=== PATIENT | male | born 1960 | race Hispanic/Latino ===

== ENCOUNTER 2018-02-15 14:25 | Emergency (ER) | payer MEDICARE ==
[~2018-02-15] VITALS: Ht 165.1 cm; Wt 86.2 kg
[~2018-02-15 14:25] MED LIST: ASPIRIN81 MG; BABY ASPIRIN81 MG PO; CLOPIDOGREL75 MG PO; DIOVAN80 MG PO; ISOSORBIDE DINI30 MG PO; KLOR-CON 1010 MEQ PO; LASIX40 MG PO; METOPROLOL SUCC25 MG PO; NEURONTIN300 MG PO; OMEPRAZOLE40 MG PO; RANEXA500 MG PO; SIMVASTATIN80 MG PO
--- OUTSIDE RECORDS SUMMARY | 2018-02-15 14:29 | XMS REPORT ---
Author Author [facility] Address Unknown Phone Unavailable Care Team Providers Care [employer] Service Technician Name Role Phone Unavailable Unavailable Payers Payer Name Policy Type Policy Number Effective Date Expiration Date Problems This patient has no known problems. Allergies, Adverse Reactions, Alerts Allergy Name Allergy Type Status Severity Reaction(s) Onset Date Inactive Date Treating Clinician Comments No Known Allergies DA Active U 2017-08-04 00:00:00 Medications This patient has no known medications.
[2018-02-15] MEDS ORDERED: HYDROCODONE/APAP 10MG-325MG TAB PO ONE (16:30)
[2018-02-15] MEDS ORDERED: KETOROLAC TROMETHAMINE 60 MG/2 ML VIAL IM ONE (16:30)
[2018-02-15] MEDS ORDERED: DEXAMETHASONE SOD PHOS 10 MG/1 ML VIAL IM ONE (17:15)
== END 2018-02-15 19:14 | disposition home or self-care (01) ==
LOC: ER 14:25
DX: M79.642 Pain in left hand (principal); M19.042 Primary osteoarthritis, left hand; I10 Essential (primary) hypertension; E11.9 Type 2 diabetes mellitus without complications; I25.10 Atherosclerotic heart disease of native coronary artery without angina pectoris; Z86.73 Personal history of transient ischemic attack (TIA), and cerebral infarction without residual deficits
CPT/HCPCS: 99282; J1100; J1885

== ENCOUNTER 2018-04-23 20:20 | Inpatient (IN) | payer MEDICARE ==
[~2018-04-23] VITALS: Ht 165.1 cm; Wt 87.5 kg
[2018-04-23] MEDS ORDERED: SODIUM CHLORIDE 0.9% 500ML 500 ML IV STA (20:27)
[2018-04-23] MEDS ORDERED: FAMOTIDINE 20 MG/2 ML VIAL IV ONE (20:30)
[2018-04-23] MEDS ORDERED: LEVETIRACETAM 500MG/5ML VIAL 500 MG in SODIUM CHLORIDE 0.9% 100 ML 100 ML IV SCH ×2 (20:30→21:00)
[2018-04-23] MEDS ORDERED: LORAZEPAM INJ 2 MG/ML VIAL ONE (20:35)
[2018-04-23] MEDS ORDERED: LORAZEPAM INJ 2 MG/ML VIAL IV ONE (20:45)
[2018-04-23 20:46] LABS: BASOPHILS % 0.4 % (0.0-1.0); EOSINOPHILS # (AUTO) 0.4 (0.0-0.4); EOSINOPHILS % 3.8 % (0.0-6.0); HEMATOCRIT 54.5 % (38.2-49.6); HEMOGLOBIN 18.1 g/dL (14.0-18.0); LYMPHOCYTES # (AUTO) 3.3 (1.0-3.2); LYMPHOCYTES % 34.8 % (18.0-39.1); MEAN CORPUSCULAR HEMOGLOBIN 29.1 pg (28-32); MEAN CORPUSCULAR HGB CONC 33.2 g/dL (31-35); MEAN CORPUSCULAR VOLUME 87.6 fL (81-99); MONOCYTES # (AUTO) 0.6 (0.2-0.8); MONOCYTES % 6.2 % (4.4-11.3); NEUTROPHILS # (AUTO) 5.2 (2.1-6.9); NEUTROPHILS % 54.6 % (38.7-80.0); PLATELET COUNT 182 x10e3/uL (140-360); RED BLOOD COUNT 6.22 x10e6/uL (4.3-5.7); RED CELL DISTRIBUTION WIDTH 13.2 % (11.7-14.4)
[2018-04-23 21:02] LABS: ALANINE AMINOTRANSFERASE 18 IU/L (0-55); ALBUMIN 3.6 g/dL (3.5-5.0); ALBUMIN/GLOBULIN RATIO 0.9 (0.8-2.0); ALKALINE PHOSPHATASE 60 IU/L (40-150); ANION GAP 18.1 mmol/L (8-16); BLOOD UREA NITROGEN 14 mg/dL (7-26); BUN/CREATININE RATIO 12 (6-25); CALCIUM 9.3 mg/dL (8.4-10.2); CARBON DIOXIDE 17 mmol/L (22-29); CHLORIDE 104 mmol/L (98-107); CREATINE KINASE 123 IU/L (30-200); CREATININE, SERUM 1.19 mg/dL (0.72-1.25); EST GLOMERULAR FILTRATION RATE > 60 ML/MIN (60-); GLUCOSE 244 mg/dL (74-118); MAGNESIUM 2.5 MG/DL (1.3-2.1); POTASSIUM 4.1 mmol/L (3.5-5.1); SODIUM 135 mmol/L (136-145)
--- NOTE | 2018-04-23 21:06 | Diagnostic Imaging Report ---
Examination: CT head without contrast Clinical Indication: Seizures. Technique: Transaxial noncontrast images from the skull base through the vertex were obtained. Sagittal and coronal reformatted images were done. Dose modulation, iterative reconstruction, and/or weight based adjustment of the mA/kV was utilized to reduce the radiation dose to as low as reasonably achievable. Comparison: None. Findings: Scalp: No abnormalities. Bones: Intact. No fractures. No blastic or lytic lesions. Brain sulci: Appropriate for patient's age. Ventricles: Normal in size and configuration. No hydrocephalus. . Extra-axial space: No abnormalities. Parenchyma: There are subtle patchy areas of low-attenuation within subcortical and periventricular white matter, nonspecific, but could represent microvascular ischemic disease. No masses, hemorrhage, or acute or chronic cortical based vascular insults. Suprasellar region: No abnormalities. Craniocervical junction: The foramen magnum is patent. No Chiari one malformation. Incidental findings: Atherosclerotic calcification of the cavernous and supraclinoid internal carotid arteries. Impression: 1. No acute intracranial finding. 2. Mild chronic microvascular ischemic change. Signed by: Dr. Edna Spence M.D. on 04/23/2018 9:02 PM
[2018-04-23] MEDS ORDERED: LEVETIRACETAM 500 MG/5 ML VIAL IV ONE ×3 (21:25→23:51)
[2018-04-23] MEDS ORDERED: SODIUM CHLORIDE 0.9% 500ML 500 ML ONE (21:26)
[2018-04-23] MEDS ORDERED: SODIUM CHLORIDE 0.9% 100 ML ONE ×3 (21:27→23:52)
[2018-04-23] MEDS: ONDANSETRON HCL INJ 2MG/ML 2ML 2 MG/ML VIAL IV STA ×2 (21:35→21:41)
[2018-04-23] MEDS ORDERED: LEVETIRACETAM500 MG (21:40)
--- NOTE | 2018-04-23 21:40 | NUR ---
home meds reviewed with billy
[2018-04-23] MEDS ORDERED: LORAZEPAM INJ 2 MG/ML VIAL IV PRN (21:45)
[2018-04-23] MEDS ORDERED: ENALAPRILAT IV INJ 1.25 MG/ML VIAL IV PRN (21:45)
[2018-04-23] MEDS ORDERED: ENOXAPARIN SODIUM INJ 100 MG/ML SYR SC ONE (21:45)
[2018-04-23] MEDS ORDERED: ASPIRIN 81 MG CHEW TAB PO ONE (21:45)
--- NOTE | 2018-04-23 21:46 | Diagnostic Imaging Report ---
EXAMINATION: CHEST SINGLE (PORTABLE) INDICATION: ^Chest pain, look for CHF, enlarge Mediastinum ^[id number] ^[id number] COMPARISON: 01/04/2013 FINDINGS: AP view TUBES and LINES: None. LUNGS: Limited by body habitus and low lung volumes. Mild central vascular congestion. PLEURA: No pleural effusion or pneumothorax. HEART AND MEDIASTINUM: The cardiomediastinal silhouette is enlarged. Median sternotomy wires. BONES AND SOFT TISSUES: No acute osseous lesion. Soft tissues are unremarkable. UPPER ABDOMEN: No free air under the diaphragm. IMPRESSION: Limited as above. Enlarged cardiomediastinal silhouette and central vascular congestion, accentuated by low lung volumes. Signed by: Dr. Dawood Camp MD on 04/23/2018 9:42 PM
[2018-04-23] MEDS ORDERED: LEVETIRACETAM 500MG/5ML VIAL 500 MG in SODIUM CHLORIDE 0.9% 100 ML 100 ML IV ONE (22:15)
[2018-04-23] MEDS ORDERED: DEXTROSE 50% SYRINGE 50 ML IV PRN (22:15)
[2018-04-23] MEDS: FAMOTIDINE 20 MG/2 ML VIAL IV SCH ×2 (22:19→22:27)
[2018-04-23 23:49] LABS: BILIRUBIN,URINE NEGATIVE (NEGATIVE); CLARITY,URINE CLEAR (CLEAR); COLOR,URINE YELLOW (YELLOW); KETONES,URINE NEGATIVE (NEGATIVE); LEUKOCYTE ESTERASE ,URINE NEGATIVE (NEGATIVE); NITRITE,URINE NEGATIVE (NEGATIVE); PROTEIN,URINE DIPSTICK 1+ (NEGATIVE); RBC,URINE 0-5 /HPF (0-5); URINE UROBILINOGEN 0.2 mg/dL (0.2 - 1)
[2018-04-24] VITALS (9 sets, daily range): BP systolic 125–155; BP diastolic 72–88
[2018-04-24 06:36] LABS: CREATINE KINASE MB 0.6 ng/mL (0-5.0)
[2018-04-24 07:00] LABS: CHOL/HDL RATIO 6.5 (3.9-4.7); CHOLESTEROL 157 MD/DL (0-199); HDL CHOLESTEROL 24 MG/DL (40-60); TRIGLYCERIDES 1064 MG/DL (0-149)
[2018-04-24] MEDS: INSULIN REGULAR, HUMAN 100 UNIT/1 ML 3ML VIAL SQ SCH ×4 (08:40→20:24)
[2018-04-24] MEDS: FAMOTIDINE 20 MG/2 ML VIAL IV SCH ×2 (08:46→20:23)
[2018-04-24] MEDS: ACETAMINOPHEN 325 MG TAB PO PRN ×2 (08:56→17:40)
[2018-04-24] MEDS ORDERED: LEVETIRACETAM 500MG/5ML VIAL 1,000 MG in SODIUM CHLORIDE 0.9% 100 ML 100 ML IV SCH (09:00)
[2018-04-24] MEDS ORDERED: FAMOTIDINE 20 MG/2 ML VIAL IV SCH (09:00)
[2018-04-24] MEDS ORDERED: LEVETIRACETAM 500MG/5ML VIAL 500 MG in SODIUM CHLORIDE 0.9% 100 ML 100 ML IV SCH (09:45)
[2018-04-24 14:10] LABS: CREATINE KINASE MB 0.5 ng/mL (0-5.0)
[2018-04-24] MEDS: GABAPENTIN 300 MG CAP PO SCH ×2 (14:13→20:23)
[2018-04-24] MEDS ORDERED: RANOLAZINE 500 MG TABSR PO SCH (17:00)
[2018-04-24] MEDS ORDERED: LEVETIRACETAM 500 MG TAB PO SCH (17:00)
--- NOTE | 2018-04-24 17:25 | NUR ---
pt called light , entered room pt appeared to be having a seizure. rapid called and cancelled after 10 sec. pt gained conscience and was able to state his name, , and location. v/s taken, 02 w/in normal level at 97%, pt reports a h/a contacted md willingham. states plan of care remains unchanged , upon her stand point pt is ok to go home, states it will take a while for body to adjust to new keprra dose. no orders received, will monitor pt closely
[2018-04-24] MEDS ORDERED: ISOSORBIDE MONONITRATE 30 MG TAB CR PO SCH (17:30)
[2018-04-24] MEDS ORDERED: VALSARTAN 80 MG TAB PO SCH (17:30)
--- NOTE | 2018-04-24 17:43 | NUR ---
given tylenol and home bp medication at this time
--- NOTE | 2018-04-24 18:24 | NUR ---
spoke with md david has cleared upon cardiac standpoint .
--- NOTE | 2018-04-24 18:59 | Consultation ---
DATE OF CONSULTATION: 04/24/2018 Neurology Consult Note HISTORY OF PRESENT ILLNESS: Mr. Eng is a 57-year-old aifno-uklb-fztgqaec man with past medical history significant for hypertension, hyperlipidemia, diabetes mellitus, coronary artery disease with prior myocardial infarction, prior stroke without residual deficits and seizure disorder admitted to [facility] on April 23, 2018, with multiple seizures and chest pain. According to the patient, he experienced a stroke approximately 1 year ago. Sometime after the stroke (the patient guesses approximately 2 months), he presented to [facility] concerned he was having another stroke. The patient was admitted for further testing. This testing determined that the patient had not had a stroke, but had experienced seizure resulting in recrudescence of prior deficits. Mr. Eng was prescribed Keppra 500 mg by mouth twice daily for seizure prophylaxis. Sometime within the past year, the patient presented once again with seizures to [facility]. At that time, the dose of Keppra was increased to 1000 mg by mouth twice daily for seizure prophylaxis. Mr. Eng describes his seizures as follows. He reports aura, but cannot describe it. Within a few seconds of experiencing this aura, the patient becomes unresponsive and has "bobbling of the head and moving of the arms." There is no tongue biting or bladder or bowel incontinence associated with this activity. The duration of this activity is unknown. Afterwards, Mr. Eng experiences postictal state characterized by lack of memory for the event, fatigue/tiredness, and headache. Mr. Eng estimates returning to his neurological baseline within one to two hours. On the day of admission, Mr. Eng reportedly experienced "lckb-bf-sgsk seizures" while at home. This prompted the patient's presentation to the emergency center at [facility] for further evaluation. Upon arrival in the Emergency Center, the patient was afebrile with a blood pressure of 148/99 mmHg and a pulse of 83 beats per minute. His neurological examination was documented as follows: Altered mental status. Alertness is decreased. While in the Emergency Center, the patient underwent multiple diagnostic studies, including a CT of the brain without contrast, which did not reveal evidence of recent large territorial ischemia or hemorrhage. Mr. Eng was admitted to [facility] as an inpatient for further evaluation and treatment of his symptoms. Mr. Eng describes the control of his seizures as "okay." Specifically, he reports possibly going a few weeks between seizures. However, recently his seizure activity has been increased. The patient does not report sleep deprivation, new medications, missed doses of medications (neither Keppra nor lorazepam), or use of stimulants. The patient reports only occasional alcohol use. He did have one glass of wine last night. Last week, Mr. Eng had the flu. REVIEW OF SYSTEMS: Chest pain/tightness, flu like symptoms for the past 1 to 2 weeks, seizures, headache. Otherwise, the 12-point review of systems is negative. PAST MEDICAL HISTORY: Hypertension, hyperlipidemia, diabetes mellitus, coronary artery disease with prior myocardial infarction, seizure disorder, stroke without residual deficits, and bilateral carotid artery stenosis. PAST SURGICAL HISTORY: Coronary artery bypass graft (7 vessels ?), appendectomy, umbilical hernia repair, left middle finger amputation, left ulnar nerve transposition, right cataract removal. PAST HOSPITALIZATIONS: Surgeries/procedures as listed, myocardial infarction, stroke, multiple hospitalizations and procedures. FAMILY MEDICAL HISTORY: The patient's paternal and maternal grandparents are . Their medical histories are unknown. The patient's father from coronary artery disease with myocardial infarction. Mr. Eng's mother . She had coronary artery disease with myocardial infarction and stroke. The patient had two siblings, one sister and brother. Brother is from coronary artery disease and myocardial infarction. The patient's sister is alive and has diabetes mellitus. Mr. Eng has 4 children, 3 boys and 1 girl, all of whom are alive. The youngest son had breast cancer, but is currently in remission. The remaining three children are healthy. SOCIAL HISTORY: Mr. Eng is . He is on disability. The patient quit smoking cigarettes in 2005. Mr. Eng reports occasional alcohol use. He does not report current or prior recreational drug use. HOME MEDICATIONS: Plavix 75 mg by mouth daily, Lasix 40 mg by mouth daily, isosorbide dinitrate 30 mg by mouth daily, metoprolol succinate 25 mg by mouth daily, losartan 80 mg by mouth daily, simvastatin 80 mg by mouth daily, Ranexa 500 mg by mouth twice daily, gabapentin 600 mg by mouth three times daily. ALLERGIES: NO KNOWN DRUG ALLERGIES. NO KNOWN FOOD ALLERGIES. NO KNOWN ALLERGIES TO LATEX. NO KNOWN ALLERGIES TO IODINE OR OTHER CONTRAST MATERIALS. PHYSICAL EXAMINATION: VITAL SIGNS: Height 65 inches, weight 193 pounds, BMI 32.1 kg/m2, blood pressure 145/81 mmHg, pulse 75 beats per minute, respiratory rate 20 breaths per minute. Oxygen saturation 95% on room air. GENERAL: The patient is awake and alert, does not appear distressed. Obese. HEENT: Normocephalic, atraumatic. Pupils are pinpoint. Moist mucous membranes. NECK: Supple. No appreciable thyromegaly. No appreciable carotid bruits. CARDIOVASCULAR: S1 and S2, regular rate and rhythm. No murmurs, rubs, or gallops. RESPIRATORY: Clear to auscultation bilaterally. No wheezes, rhonchi, or rales. EXTREMITIES: The skin is warm and dry. No clubbing, cyanosis, or edema. The posterior tibial and dorsalis pedis pulses are 1+ and symmetric. SKIN: No rashes or lesions. NEUROLOGIC: Memory/Attention: The patient is awake and alert, oriented to person, place, time, and situation. Cranial Nerves: Cranial nerve 1, not tested. Cranial nerve 2, 3, 4, and 6, the pupils are pinpoint. Extraocular movements intact. No nystagmus. Cranial nerve 5, sensation to light touch and pinprick is intact in the bilateral V1 through V3 distributions. Strength in the temporalis and masseter muscles is within normal limits. Cranial nerve 7, the face is symmetric as are all facial movements. Strength is within normal limits. Cranial nerve 8, hearing is intact to finger rub bilaterally. Cranial nerve 9 and 10, the soft palate elevates equally and symmetrically. Cranial nerve 11, normal strength to the bilateral sternocleidomastoid and trapezius muscles. Cranial nerve 12, the tongue protrudes in the midline and moves symmetrically from rvsc-nd-bxam. Strength: Bulk is normal. Strength is 5/5 in the bilateral deltoids, biceps, triceps, wrist flexors and extensors, finger flexors and extensors, intrinsic hand muscles, hip flexors, knee flexors and extensors, ankle dorsiflexor and plantar flexion, and intrinsic foot muscles. Tone is normal. DTRs: Deep tendon reflexes are 1+ and symmetric at the triceps, biceps, brachioradialis. Deep tendon reflexes are absent and symmetric at the Achilles. Plantar responses are flexor bilaterally. Sensation: Sensation is intact to light touch and pinprick in both arms and both legs except as follows: The patient reports tingling over the left leg to pinprick. Cerebellar: Yvedgp-pwqy-bstjeg and heel-baugh movements are intact without dysmetria or other impairment. Gait: Deferred. Speech: Spontaneous speech is normal without appreciable dysarthria or aphasia. Repetition is intact. Involuntary Movements: None. Pronator Drift: Subtle in the left arm. LABORATORY DATA: A comprehensive metabolic panel is significant for sodium of 135, carbon dioxide of 17, anion gap of 18.1, serum glucose of 244, magnesium of 2.5, and globulin of 4.0. B-natriuretic peptide is 73.5. Cardiac enzymes are negative x2. Total cholesterol is 157, triglycerides 1064, LDL cholesterol cannot be calculated, HDL cholesterol 24. A fingerstick serum glucose is 183. CBC with differential and platelets reveals white blood cell count of 9.47 with normal differential. The hemoglobin and hematocrit are 18.1 and 54.5 respectively. The platelet count is 182. Urinalysis was significant for 1+ protein, 2+ glucose, and trace blood. DIAGNOSTIC STUDIES: Electrocardiogram on 04/23/2018: Normal sinus rhythm at 86 beats per minute. Chest x-ray on 04/23/2018: Limited as above. Enlarged cardiomediastinal silhouette and central vascular congestion, accentuated by low lung volumes. CT of the brain without contrast on 04/23/2018: On my review, there is no evidence of recent large territorial ischemia, hemorrhage, mass, or mass effect. Cerebral volumes are appropriate for age. There are findings compatible with aruh-sf-eqszprns chronic small vessel ischemic disease. ASSESSMENT AND PLAN: Mr. Eng is a 57-year-old iqkum-cdpg-mzugggdg man with an extensive past medical history, including seizure disorder secondary to prior stroke. At present, the patient's neurological examination is nonfocal with the exception of tingling to pinprick over the left leg and a subtle pronator drift in the left arm. The patient's laboratory data and other diagnostic studies have been reviewed and are documented above. Based on the history provided by the patient, it appears Mr. Eng experienced a series of unprovoked seizures on April 23, 2018. Recommendations are as follows: 1. The dose of Keppra will be increased from 1000 mg to 1500 mg by mouth twice daily for seizure prophylaxis. Mr. Eng has an appointment scheduled with the neurologist on Thursday, April 26, 2018. The patient is strongly encouraged to keep this appointment, so he and the neurologist may discuss further evaluation and treatment. 2. For headaches, continue treatment with Tylenol 650 mg by mouth every 6 hours as needed. 3. For continued stroke prophylaxis, continue treatment with Plavix, antihypertensive medications, statin medication, and diabetes medications/treatments. Consider adding a medication for treatment of hypertriglyceridemia. 4. Defer treatment of the remaining medical comorbidities to the primary and other services following the patient. Thank you for this consultation. I will follow the patient while he remains in the hospital. Time spent: 50 minutes. Ese Jansen MD CP/KELLEN /[id number] MTDD
--- NOTE | 2018-04-24 19:14 | NUR ---
History and Physical cc: cp HPI: 57yoM, PCP Dr.J. Rivera, developed brief seizure while eating dinner, lasting about 3-5 seconds. Few minutes later, had another seizure; Pt does drink alcohol, but provides different stories about drinking beer, but not drinking for past 8 months; Pt admits that he has seizures about every week or other week. No real chest pain; no sob; Now patient feels fine, cleared by cardiology and neurology for discharge, after antiseizure medication increased; PMH: HTN, DM, DE in 2005 s/p 3 stents, s/p CABG, Former smoker PSHx: CABG, coronary stent, left middle finger amputation Allergies; see emr Fh/SH: ; quit cigs; etoh intermittent- amount unknown Meds; see MAR ROS; no f/c/s/N/V/D/MARQUEZ/vision changes/leg pain/back pain/skin rash v/s; rev'd PE: tired appearing anicteric ns1s2 mod bs soft nt nd no e/t skin dry flat affect a&ox; dennis; motor 5/5 all ext; no visual field deficits labs/meds; rev'd A/P: 57yoM Atypical cp HLD CAD GERD DM2 HTN Metabolic acidosis Obesity Seizure PLAN Keppra increased Continue home meds Counseled on etoh cessation Hba1c is 8.4, TG >1000 Change simvastatin to atorvastatin, add fibrate D/C home with new regimen; Poncho Villanueva MD, PhD.
[2018-04-24] MEDS ORDERED: FENOFIBRATE145 MG PO (19:16)
[2018-04-24] MEDS ORDERED: KEPPRA500 MG PO (19:16)
[2018-04-24] MEDS ORDERED: LIPITOR20 MG PO (19:16)
--- NOTE | 2018-04-24 20:42 | NUR ---
PT AAOX3. NO S/S OF DISTRESS NOTED. NO COMPLAINTS VOICED. CONDITION STABLE. DC'D TO HOME. PRESCRIPTIONS GIVEN. DISCHARGE INSTRUCTIONS PROVIDED, PT VERBALIZED UNDERSTANDING. BELONGINGS GATHERED BY PT. Addendum: 04/24/18 at 2046 by Gonsalo Fraga RN IV REMOVED WITH TIP INTACT. PRESSURE DRESSING APPLIED.
[2018-04-24] MEDS ORDERED: ATORVASTATIN 20 MG TAB PO SCH (21:00)
--- NOTE | 2018-04-24 23:54 | NUR ---
DIscharge summary: A/P: 57yoM Atypical cp HLD CAD GERD DM2 HTN Metabolic acidosis Obesity Seizure PLAN Keppra increased Continue home meds Counseled on etoh cessation Hba1c is 8.4, TG >1000 Change simvastatin to atorvastatin, add fibrate D/C home with new regimen; d/c home f/u pcp 1 week and neurology clinic 10 days and cardiology 1 week d/c >35mins Stable and improved. Poncho Villanueva MD, PhD.
--- NOTE | 2018-04-25 01:21 | Consultation ---
DATE OF CONSULTATION: 04/24/2018 Cardiology Consultation. REASON FOR CONSULTATION: Chest pain. HISTORY OF PRESENT ILLNESS: This is a 57-year-old man with a history of coronary artery disease status post coronary artery bypass graft surgery and percutaneous coronary intervention, hypertension, hyperlipidemia, chronic angina, congestive heart failure, and seizure disorder, who presented to the emergency department with seizure. The patient had recurrent episodes of seizures. He had chest pain prior to the seizure episode, which prompted our consultation. The patient used to follow with Dr. Black. Recent testing has not been performed. He is currently feeling well. Denies any current chest pain or shortness of breath, palpitations, syncope, lower extremity swelling, PND, or orthopnea. PAST MEDICAL HISTORY: As stated above. PAST SURGICAL HISTORY: As stated above. PAST FAMILY HISTORY: No premature coronary artery disease or sudden cardiac . SOCIAL HISTORY: No illicit drug use, alcohol use, or tobacco use. ALLERGIES: NO KNOWN DRUG ALLERGIES. MEDICATIONS: See medication reconciliation form. PHYSICAL EXAMINATION: VITAL SIGNS: Temperature 97.3, heart rate 72, respirations 18, blood pressure , oxygen saturation 97% on room air. GENERAL: He is a well-appearing male HEAD: Normocephalic and atraumatic. EYES: Extraocular movements are intact. Conjunctivae are clear. NECK: No JVD. No bruits. CARDIOVASCULAR: Regular rate and rhythm. LUNGS: Clear to auscultation bilaterally. No wheezing or rales. ABDOMEN: Soft, nontender, nondistended. Normal bowel sounds. EXTREMITIES: No clubbing, cyanosis, or edema. VASCULAR: 2+ pulses. SKIN: Warm, dry, intact. NEUROLOGIC: No focal deficits noted. Cranial nerves are grossly intact. PSYCHIATRIC: Normal mood and affect. LABORATORY DATA: All laboratory data reviewed. Troponin negative x3. Creatinine 1.19. Telemetry monitoring revealed normal sinus rhythm. A 12-lead electrocardiogram showed normal sinus rhythm. Nonspecific ST-T wave abnormalities. Chest x-ray shows a large cardiomediastinal silhouette with central vascular congestion situated by low lung volumes. IMPRESSION: 1. Coronary artery disease status post coronary artery bypass graft surgery and percutaneous coronary intervention. 2. Congestive heart failure. 3. Hypertension. 4. Hyperlipidemia. 5. Seizure disorder. RECOMMENDATIONS: The patient is ruled out for acute myocardial infarction with three sets of negative cardiac enzymes. There are nonspecific electrocardiogram. He is completely asymptomatic from a cardiovascular standpoint. Continue seizure disorder treatment per primary Neurology teams. No further cardiac workup is needed at this point in time. The patient has received my card and he can follow up as an outpatient. DO MARTIN Miller/KELLEN /[id number]
[2018-04-25] MEDS ORDERED: FENOFIBRATE 145 MG TAB PO SCH (09:00)
[2018-04-25] MEDS ORDERED: VALSARTAN 80 MG TAB PO SCH (09:00)
[2018-04-25] MEDS ORDERED: METOPROLOL SUCCINATE 25 MG TAB XL PO SCH (09:00)
[2018-04-25] MEDS ORDERED: ISOSORBIDE MONONITRATE 30 MG TAB CR PO SCH (09:00)
== END 2018-04-24 20:45 | disposition home or self-care (01) | DRG 101 ==
LOC: ER 20:20 → ERHOLD 21:57 → MED/SURG 22:42
PROVIDERS: ADMIT Internal Medicine; ATTEND Internal Medicine
DX: G40.509 Epileptic seizures related to external causes, not intractable, without status epilepticus (principal); E87.2 Acidosis; I69.398 Other sequelae of cerebral infarction; I25.10 Atherosclerotic heart disease of native coronary artery without angina pectoris; I10 Essential (primary) hypertension; Z95.1 Presence of aortocoronary bypass graft; E78.5 Hyperlipidemia, unspecified; E11.9 Type 2 diabetes mellitus without complications; I25.2 Old myocardial infarction; Z87.891 Personal history of nicotine dependence; Z95.5 Presence of coronary angioplasty implant and graft; R07.89 Other chest pain; E66.9 Obesity, unspecified; K21.9 Gastro-esophageal reflux disease without esophagitis; Z68.32 Body mass index [BMI] 32.0-32.9, adult
CPT/HCPCS: 36415; 70450; 71045; 80053; 80061; 81001; 82542; 82550; 82553; 82948; 83036; 83735; 83880; 84484; 85025; 93005; 99284; J1650; J2060; J2405; J7040; J7050

== ENCOUNTER 2018-07-23 13:21 | Emergency (ER) | payer MEDICARE, OTHER ==
[~2018-07-23] VITALS: Ht 165.1 cm; Wt 87.5 kg
[~2018-07-23 13:21] MED LIST changes: +FENOFIBRATE145 MG PO; +KEPPRA500 MG PO; +LEVETIRACETAM500 MG; +LIPITOR20 MG PO
[2018-07-23] MEDS ORDERED: SODIUM CHLORIDE 0.9% 1000ML 1,000 ML IV STA (13:48)
[2018-07-23] MEDS ORDERED: LEVETIRACETAM 500MG/5ML VIAL 500 MG in SODIUM CHLORIDE 0.9% 100 ML 100 ML IV SCH (14:00)
[2018-07-23 14:11] LABS: BASOPHILS # (AUTO) 0.1 (0.0-0.1); BASOPHILS % 0.4 % (0.0-1.0); EOSINOPHILS # (AUTO) 0.1 (0.0-0.4); EOSINOPHILS % 0.4 % (0.0-6.0); HEMATOCRIT 55.5 % (38.2-49.6); HEMOGLOBIN 18.5 g/dL (14.0-18.0); LYMPHOCYTES # (AUTO) 2.5 (1.0-3.2); LYMPHOCYTES % 15.4 % (18.0-39.1); MEAN CORPUSCULAR HEMOGLOBIN 29.3 pg (28-32); MEAN CORPUSCULAR HGB CONC 33.3 g/dL (31-35); MONOCYTES % 6.2 % (4.4-11.3); NEUTROPHILS # (AUTO) 12.3 (2.1-6.9); NEUTROPHILS % 77.1 % (38.7-80.0); PLATELET COUNT 175 x10e3/uL (140-360); RED BLOOD COUNT 6.31 x10e6/uL (4.3-5.7); RED CELL DISTRIBUTION WIDTH 13.3 % (11.7-14.4)
[2018-07-23] MEDS ORDERED: LEVETIRACETAM 500 MG/5 ML VIAL IV ONE (14:22)
[2018-07-23 14:28] LABS: INR 1.24; PROTHROMBIN TIME 16.2 seconds (11.9-14.5)
[2018-07-23 14:29] LABS: PARTIAL THROMBOPLASTIN TIME 30.6 seconds (23.8-35.5)
[2018-07-23] MEDS ORDERED: MORPHINE SULFATE INJ 4 MG/ML INJ 1ML IV ONE (14:30)
[2018-07-23] MEDS ORDERED: ONDANSETRON HCL INJ 2MG/ML 2ML 2 MG/ML VIAL IV ONE (14:30)
[2018-07-23 14:39] LABS: ALBUMIN 3.6 g/dL (3.5-5.0); ALBUMIN/GLOBULIN RATIO 0.9 (0.8-2.0); ANION GAP 12.4 mmol/L (8-16); CALCIUM 9.7 mg/dL (8.4-10.2); CREATININE, SERUM 1.6 mg/dL (0.72-1.25); POTASSIUM 4.4 mmol/L (3.5-5.1)
[2018-07-23 15:24] LABS: BILIRUBIN,URINE SMALL (NEGATIVE); CLARITY,URINE CLOUDY (CLEAR); COLOR,URINE RED (YELLOW); KETONES,URINE TRACE (NEGATIVE); LEUKOCYTE ESTERASE ,URINE TRACE (NEGATIVE); NITRITE,URINE POSITIVE (NEGATIVE); URINE UROBILINOGEN 1 mg/dL (0.2 - 1)
[2018-07-23 15:26] LABS: PROTEIN,URINE DIPSTICK 3+ (NEGATIVE)
[2018-07-23 15:32] LABS: BACTERIA,URINE MODERATE /HPF; RBC,URINE >50 /HPF (0-5); WBC,URINE (MAN) >50 /HPF (0-5)
[2018-07-23 15:34] LABS: TRANSITIONAL EPI CELLS,URINE MODERATE
--- NOTE | 2018-07-23 16:08 | Diagnostic Imaging Report ---
EXAM: CT Abdomen and Pelvis WITH contrast INDICATION: ^bilateral lower abdominal pain with n/v/d. Blood in urine x2 days. COMPARISON: None. TECHNIQUE: Abdomen and pelvis were scanned utilizing a multidetector helical scanner from the lung base to the pubic symphysis after administration of IV contrast. Coronal and sagittal reformations were obtained. Routine protocol was performed. Scan was performed when during portal venous phase. IV CONTRAST: 100 mL of Isovue 370 ORAL CONTRAST: Water COMPLICATIONS: None. Grade 1.6. GFR 44. Hydration protocol. RADIATION DOSE: Total DLP: 614.71 mGy*cm Estimated effective dose: (DLP x 0.015 x size factor) mSv CTDIvol has been reviewed. It is below the limits set by the Radiation Protocol Committee (RPC). Dose modulation, iterative reconstruction, and/or weight based adjustment of the mA/kV was utilized to reduce the radiation dose to as low as reasonably achievable. FINDINGS: LINES and TUBES: Median sternotomy wires. LOWER THORAX: Unremarkable HEPATOBILIARY: The liver is diffuse hypodense compared to the spleen, consistent with diffuse hepatic diffuse hepatic steatosis. No focal hepatic lesions. No biliary ductal dilation. GALLBLADDER: No radio-opaque stones or sludge. No wall thickening. SPLEEN: No splenomegaly. PANCREAS: No focal masses or ductal dilatation. ADRENALS: No adrenal nodules KIDNEYS/URETERS: Kidneys enhance symmetrically. Mild nonspecific perinephric fat stranding. No hydronephrosis. No cystic or solid mass lesions. No stones. GI TRACT: No abnormal distention, wall thickening, or evidence of bowel obstruction. There are post surgical changes of appendectomy. PELVIC ORGANS/BLADDER: Bladder is under distended with circumferential bladder wall thickening especially anteriorly. Prostate measures 3.8 cm in transverse dimension with collection of dystrophic calcifications. LYMPH NODES: No lymphadenopathy. VESSELS: There is severe atherosclerotic disease in the aorta and major arterial branches. PERITONEUM / RETROPERITONEUM: No free air or fluid. BONES: Unremarkable. SOFT TISSUES: There are bilateral fat containing inguinal hernias. IMPRESSION: 1. Bladder wall thickening with inflammatory changes. Correlate with UTI. 2. No other acute abnormalities in the abdomen or pelvis. Signed by: Dr. Claudio Kelley M.D. on 07/23/2018 4:05 PM
[2018-07-23] MEDS ORDERED: MORPHINE SULFATE INJ 4 MG/ML INJ 1ML IV PRN (16:15)
[2018-07-23] MEDS ORDERED: CEFTRIAXONE SOD 1 GM VIAL ONE (16:16)
[2018-07-23] MEDS ORDERED: CEFTRIAXONE SOD 1 GM/NS 50 ML 50 ML IV ONE (17:00)
[2018-07-23] MEDS ORDERED: IOPAMIDOL 370 MG/ML 200 ML INFUS..BTL INJ ONE (17:17)
[2018-07-23] MEDS ORDERED: SODIUM CHLORIDE 0.9% 50ML 50 ML ONE (17:17)
== END 2018-07-23 17:53 | disposition home or self-care (01) ==
LOC: ER 13:21
DX: R10.32 Left lower quadrant pain (principal); R10.31 Right lower quadrant pain; R11.2 Nausea with vomiting, unspecified; R19.7 Diarrhea, unspecified; N30.91 Cystitis, unspecified with hematuria; N41.0 Acute prostatitis; I10 Essential (primary) hypertension; E11.9 Type 2 diabetes mellitus without complications; I25.10 Atherosclerotic heart disease of native coronary artery without angina pectoris; E78.5 Hyperlipidemia, unspecified; K21.9 Gastro-esophageal reflux disease without esophagitis; I25.2 Old myocardial infarction
CPT/HCPCS: 36415; 74177; 80053; 81001; 82150; 82542; 83605; 83690; 85025; 85610; 85730; 87040; 87071; 87086; 87186; 87205; 99284; J0696; J1953; J2270; J2405; J7030; Q9967